=== PATIENT | male | born 1955 | race Caucasian/White ===

== ENCOUNTER 2020-09-10 07:38 | Emergency (ER) | payer MEDICARE, OTHER ==
[2020-09-10 07:50] VITALS: BP 123/83
--- NOTE | 2020-09-10 08:34 | ED Physician Documentation ---
PD HPI SKIN - Stated complaint Stated Complaint: L SIDE RASH - Chief complaint Chief Complaint: Wound - History obtained from History obtained from: Patient - Additional information Additional information: 65-year-old man, previously healthy, vaccinated with the Shingrix vaccine, presents with rash to the left side radiating to the beltline since yesterday with blister formation. He is otherwise asymptomatic. Patient is concerned because he held his 5-week-old grandchild yesterday. Review of Systems Ten Systems: 10 systems reviewed and negative Constitutional: denies: Fever, Chills Skin: reports: Rash Immunocompromised: denies: Immunocompromised PD PAST MEDICAL HISTORY - Past Medical History Past Medical History: Yes Cardiovascular: High cholesterol - Present Medications Home Medications: Ambulatory Orders Medication Instructions Recorded Confirmed Atorvastatin [Lipitor] 10 mg PO DAILY 09/10/20 09/10/20 Valacyclovir HCl [Valtrex] 1,000 mg PO TID 7 Days #21 tablet 09/10/20 - Allergies Allergies/Adverse Reactions: Allergies Allergy/AdvReac Type Severity Reaction Status Date / Time No Known Drug Allergies Allergy Verified 09/10/20 07:50 - Social History Does the pt smoke?: No Smoking Status: Never smoker Does the pt drink ETOH?: No Does the pt have substance abuse?: No - Immunizations Immunizations are current?: Yes - POLST Patient has POLST: No PD ED PE NORMAL - Vitals Vital signs reviewed: Yes - General General: Alert and oriented X 3, No acute distress, Well developed/nourished - HEENT HEENT: Atraumatic, PERRL, EOMI - Derm Derm: Normal color, Warm and dry, Other (Blister formation and rash to the left sided trunk and back in a dermatomal distribution.) - Extremities Extremities: No deformity Results - Vitals Vitals: Vital Signs - 24 hr 09/10/20 07:47 Temperature 36.6 C Heart Rate 65 Respiratory 16 Rate Blood Pressure 123/83 H O2 Saturation 96 Oxygen O2 Source Room air PD MEDICAL DECISION MAKING - ED course ED course: 65-year-old man presents with shingles outbreak. I discussed with Dr. Allred, our front office help on-call who states that as long as he practices good handwashing and keep his rash covered, he does not need quarantine from the 5- week old baby he is staying with as long as the child is healthy. Valacyclovir prescribed. Return precautions given. Patient will follow up with his primary doctor. Departure - Departure Disposition: 01 Home, Self Care Clinical Impression: Shingles Condition: Good Instructions: ED Shingles Prescriptions: Valacyclovir HCl [Valtrex] 1,000 mg PO TID 7 Days #21 tablet Comments: You were seen in the emergency department for shingles. Please take your Valtrex as prescribed and return to the emergency department if you develop any new or worsening symptoms or have other concerns. Until the rash has crusted over, you are contagious and should avoid contact with women who have never had chickenpox or the varicella vaccine, premature or low birthweight infants, and immunocompromised individuals. Keep the rash covered, if possible and wash your hands often to prevent the spread of the virus to others. Your daughter should call her front office help for recommendations as to whether you need to quarantine from your grandchild. Our front office help on-call believes that it should be fine If the child is previously healthy as long as you keep the rash covered at all times.
== END 2020-09-10 08:46 | disposition home or self-care (01) ==
LOC: ED 07:38
DX: B02.9 Zoster without complications (principal)
CPT/HCPCS: 99282; 99283